=== PATIENT | male | born 1980 | race Caucasian/White ===

== ENCOUNTER 2021-08-16 23:15 | Inpatient (IN) | payer BC, SELFPAY ==
[~2021-08-16] VITALS: Ht 180.3 cm; Wt 63.5 kg
[2021-08-16 23:15] VITALS: BP_SYST 116
[2021-08-17 00:09] LABS: BASOPHILS # (AUTO) 0.1 K/uL (0.0-0.2); BASOPHILS % (AUTO) 0.6 % (0.0-2.0); EOSINOPHILS # (AUTO) 0.2 K/uL (0.0-0.4); EOSINOPHILS % (AUTO) 1.5 % (0.0-4.0); HEMATOCRIT 39.7 % (36-54); HEMOGLOBIN 13.5 g/dL (14.0-18.0); LYMPHOCYTES # (AUTO) 1.7 K/uL (1.0-5.5); LYMPHOCYTES % (AUTO) 12.9 % (20.5-51.5); MEAN CORPUSCULAR HEMOGLOBIN 31 pg (27-31); MEAN CORPUSCULAR HGB CONC 34 % (32-36); MEAN CORPUSCULAR VOLUME 92 fL (79.0-98.0); MONOCYTES # (AUTO) 0.8 K/uL (0.0-1.0); MONOCYTES % (AUTO) 6.4 % (1.7-9.3); NEUTROPHILS # (AUTO) 10.2 K/uL (1.8-7.7); NEUTROPHILS % (AUTO) 78.6 % (40.0-70.0); PLATELET COUNT (AUTO) 248 K/uL (130-430); RED BLOOD CELL COUNT(AUTO) 4.32 MIL/uL (4.2-6.2); RED CELL DISTRIBUTION WIDTH 13.8 % (9.0-15.0)
[2021-08-17 00:17] LABS: ANION GAP 13 (5-15); CALCIUM 9.3 mg/dL (8.4-11.0); CHLORIDE 98 mmol/L (98-107); CREATININE 1.59 mg/dL (0.55-1.30); GLUCOSE 253 mg/dL (70-99); POTASSIUM 4.9 mmol/L (3.5-5.1); SODIUM SERUM 140 mmol/L (136-145); UREA NITROGEN, BLOOD 15 mg/dL (8-21)
[2021-08-17 00:19] LABS: GFR AFRICAN AMERICAN 62 mL/min (>90)
[2021-08-17 00:26] LABS: ALANINE AMINOTRANSFERASE 32 U/L (12-78); ALBUMIN 4.2 g/dL (3.4-4.8); ASPARTATE AMINOTRANSFERASE 27 U/L (10-37); TOTAL BILIRUBIN 0.6 mg/dL (0.0-1.0)
[2021-08-17 00:31] LABS: ALCOHOL, BLOOD < 3 mg/dL (<10)
[2021-08-17 01:57] LABS: BARBITURATE, URINE NEGATIVE (NEG <=200); BENZODIAZEPINE, URINE NEGATIVE (NEG <=150); CANNABINOID, URINE NEGATIVE (NEG <=50); COCAINE, URINE NEGATIVE (NEG <=150); METHAMPHETAMINES SCREEN,URINE NEGATIVE (NEG <=500); OPIATE, URINE POSITIVE (NEG <=100); PHENCYCLIDINE SCREEN,URINE NEGATIVE (NEG <=25); UR TRICYCLIC ANTIDEPRESSANTS NEGATIVE (NEG <=300); URINE AMPHETAMINE NEGATIVE (NEG <=500); URINE METHADONE NEGATIVE (NEG <=200); URINE OXYCODONE SCREEN NEGATIVE (NEG <=100); URINE PROPOXYPHENE SCREEN NEGATIVE (NEG <=300)
[2021-08-17] MEDS ORDERED: ASPIRIN 325 MG TABLET PO ONE (06:00)
[2021-08-17] MEDS ORDERED: METOPROLOL TARTRATE 25 MG TABLET PO ONE (06:00)
[2021-08-17] MEDS ORDERED: ASPIRIN 325 MG TABLET ONE (06:15)
[2021-08-17] MEDS ORDERED: PRO10 PO (06:48)
[2021-08-17] MEDS ORDERED: BEN50 PO (06:48)
[2021-08-17] MEDS ORDERED: NEU300 PO (06:48)
[2021-08-17] MEDS ORDERED: NS 500 ML IV ONE ×2 (10:00)
[2021-08-17 12:01] VITALS: BP_SYST 118
[2021-08-17 12:40] VITALS: BP_SYST 115
[2021-08-17 16:00] VITALS: BP_SYST 110
[2021-08-17 20:10] VITALS: BP_SYST 112
[2021-08-18] VITALS: BP_SYST 97
[2021-08-18 03:39] LABS: EOSINOPHILS # (AUTO) 0.2 K/uL (0.0-0.4); EOSINOPHILS % (AUTO) 3.6 % (0.0-4.0); HEMATOCRIT 36.8 % (36-54); HEMOGLOBIN 12.4 g/dL (14.0-18.0); LYMPHOCYTES # (AUTO) 1.5 K/uL (1.0-5.5); LYMPHOCYTES % (AUTO) 29.6 % (20.5-51.5); MEAN CORPUSCULAR HEMOGLOBIN 31 pg (27-31); MEAN CORPUSCULAR HGB CONC 34 % (32-36); MEAN CORPUSCULAR VOLUME 91 fL (79.0-98.0); MONOCYTES # (AUTO) 0.4 K/uL (0.0-1.0); MONOCYTES % (AUTO) 7.6 % (1.7-9.3); NEUTROPHILS % (AUTO) 58.2 % (40.0-70.0); PLATELET COUNT (AUTO) 198 K/uL (130-430); RED BLOOD CELL COUNT(AUTO) 4.05 MIL/uL (4.2-6.2); RED CELL DISTRIBUTION WIDTH 14.1 % (9.0-15.0); WHITE BLOOD COUNT (AUTO) 5.2 K/uL (4.8-10.8)
[2021-08-18 03:44] LABS: ALANINE AMINOTRANSFERASE 26 U/L (12-78); ALBUMIN 3.3 g/dL (3.4-4.8); ASPARTATE AMINOTRANSFERASE 20 U/L (10-37); CALCIUM 8.5 mg/dL (8.4-11.0); CHLORIDE 108 mmol/L (98-107); CHOLESTEROL 129 mg/dL (<200); CREATININE 0.94 mg/dL (0.55-1.30); GLUCOSE 100 mg/dL (70-99); HDL CHOLESTEROL 54 mg/dL (>45); LDL CHOLESTEROL 73 mg/dL (<100); POTASSIUM 4.1 mmol/L (3.5-5.1); SODIUM SERUM 138 mmol/L (136-145); TOTAL BILIRUBIN 0.6 mg/dL (0.0-1.0); TRIGLYCERIDES 60 mg/dL (30-150); UREA NITROGEN, BLOOD 16 mg/dL (8-21)
[2021-08-18 03:47] LABS: GFR AFRICAN AMERICAN 114 mL/min (>90)
[2021-08-18 03:48] LABS: ANION GAP < 3 (5-15)
[2021-08-18 08:00] VITALS: BP_SYST 103
[2021-08-18] MEDS ORDERED: ACET325T PO (17:22)
[2021-08-18] MEDS ORDERED: ACETAMINOPHEN 325 MG TABLET PO PRN (17:30)
[2021-08-18] MEDS ORDERED: FLUoxetine HCL 10 MG CAPSULE (PROzac) PO ONE (18:00)
[2021-08-18 20:10] VITALS: BP_SYST 106
[2021-08-18] MEDS ORDERED: DIPHENHYDRAMINE HCL 50 MG CAPSULE PO SCH (21:00)
[2021-08-18] MEDS ORDERED: GABAPENTIN 300 MG CAPSULE PO SCH (21:00)
[2021-08-19 00:10] VITALS: BP_SYST 115
[2021-08-19 08:00] VITALS: BP_SYST 117
[2021-08-19] MEDS ORDERED: FLUoxetine HCL 10 MG CAPSULE (PROzac) PO SCH (09:00)
[2021-08-19 12:02] VITALS: BP_SYST 110
== END 2021-08-19 12:45 | disposition home or self-care (01) | DRG 917 ==
LOC: SED 23:15 → STU 08-17 05:49
PROVIDERS: ADMIT Internal Medicine Hospice and Palliative Medicine; ATTEND Internal Medicine Hospice and Palliative Medicine
DX: T40.411A Poisoning by fentanyl or fentanyl analogs, accidental (unintentional), initial encounter (principal); I21.A1 Myocardial infarction type 2; R77.8 Other specified abnormalities of plasma proteins; N28.9 Disorder of kidney and ureter, unspecified; Z20.822 Contact with and (suspected) exposure to COVID-19; N18.2 Chronic kidney disease, stage 2 (mild); Z79.899 Other long term (current) drug therapy; Z88.1 Allergy status to other antibiotic agents; Y92.89 Other specified places as the place of occurrence of the external cause; Z87.891 Personal history of nicotine dependence
CPT/HCPCS: 36415; 71045; 80053; 80061; 80307; 84484; 85025; 93005; 93306; 99291; G0378; G0482; Q0163